=== PATIENT | male | born 1975 | race Two or more races ===

== ENCOUNTER 2017-01-17 05:51 | Emergency (ER) | payer MEDICARE, MEDICAID ==
[~2017-01-17] VITALS: Ht 170.2 cm; Wt 68.0 kg
[~2017-01-17 05:51] MED LIST: ADAL40KI SQ; MESA1.2T PO; OMEP20TA20 PO; PRED20TA PO
[2017-01-17] MEDS ORDERED: HYDROMORPHONE 1 MG/1 ML DISP.SYRIN IM ONE (06:15)
[2017-01-17] MEDS ORDERED: HYDROMORPHONE 1 MG/1 ML DISP.SYRIN ONE (06:26)
--- NOTE | 2017-01-17 06:37 | NUR ---
Patient discharged to home in stable conditon. Written and verbal after care instructions given. Patient verbalizes understanding of instructions.
== END 2017-01-17 06:38 | disposition home or self-care (01) ==
LOC: ER 05:53
DX: M54.5 Low back pain (principal); F17.200 Nicotine dependence, unspecified, uncomplicated; Z88.6 Allergy status to analgesic agent
CPT/HCPCS: A4663; J1170

== ENCOUNTER 2017-07-18 17:35 | Emergency (ER) | payer MEDICARE, OTHER ==
[~2017-07-18] VITALS: Ht 172.7 cm; Wt 59.0 kg
[2017-07-18] MEDS ORDERED: TERI2.4P SQ (17:43)
[2017-07-18] MEDS ORDERED: ONDANSETRON 4 MG/2 ML VIAL IV ONE (18:15)
[2017-07-18] MEDS ORDERED: IV NORMAL SALINE 1000 ML BAG IV ONE (18:15)
[2017-07-18] MEDS ORDERED: HYDROMORPHONE 1 MG/1 ML DISP.SYRIN IV ONE (18:15)
[2017-07-18 18:34] LABS: BASOPHILS % (AUTO) 0.2 % (0.0-2.0); EOSINOPHILS % (AUTO) 0.2 % (0.0-7.0); HEMATOCRIT 38.2 % (40-50); HEMOGLOBIN 12.5 G/DL (14.0-18.0); LYMPHOCYTES % (AUTO) 17.4 % (20.5-51.5); MEAN CORPUSCULAR HEMOGLOBIN 26.4 UUG (27.0-31.0); MEAN CORPUSCULAR HGB CONC 33 g/dL (32.0-37.0); MEAN CORPUSCULAR VOLUME 80.6 FL (82.0-92.0); MONOCYTES # (AUTO) 0.7 K/UL (0.1-1.30); MONOCYTES % (AUTO) 3.9 % (0.0-11.0); NEUTROPHILS # (AUTO) 13.6 K/UL (1.8-8.9); NEUTROPHILS % (AUTO) 78.3 % (38.5-71.5); PLATELET COUNT (AUTO) 378 K/UL (150-450); RED BLOOD CELL COUNT(AUTO) 4.74 MIL/UL (4.7-6.1); WHITE BLOOD COUNT (AUTO) 17.3 K/UL (4.0-11.2)
[2017-07-18 18:40] LABS: CREATININE 0.8 mg/dL (0.6-1.3); POTASSIUM 3.2 mmol/L (3.5-5.1)
[2017-07-18 18:46] LABS: BAND % (MANUAL) 2 % (0-10); BILIRUBIN,DIRECT 0.1 mg/dL (0.0-0.2); BILIRUBIN,TOTAL 0.4 mg/dL (0.2-1.0); LYMPHOCYTES % (MANUAL) 15 % (20-40); MONOCYTES % (MANUAL) 5 % (2-10); NEUTROPHILS % (MANUAL) 78 % (42-75); TOTAL PROTEIN, SERUM 6.9 g/dL (6.4-8.2)
[2017-07-18] MEDS ORDERED: HYDROMORPHONE 2 MG/1 ML DISP.SYRIN ONE (18:52)
[2017-07-18] MEDS ORDERED: ONDANSETRON 4 MG/2 ML VIAL ONE (18:52)
--- NOTE | 2017-07-18 20:09 | NUR ---
Peripheral IV access removed prior per ER MD instruction.
[2017-07-18] MEDS ORDERED: diphenhydrAMINE 50 MG CAPSULE PO ONE (20:30)
[2017-07-18] MEDS ORDERED: diphenhydrAMINE 50 MG CAPSULE ONE (20:39)
--- NOTE | 2017-07-18 20:52 | NUR ---
Patient discharged to home in stable conditon. Written and verbal after care instructions given. Patient verbalizes understanding of instructions.
== END 2017-07-18 20:53 | disposition home or self-care (01) ==
LOC: ER 17:37
DX: K50.90 Crohn's disease, unspecified, without complications (principal); F17.200 Nicotine dependence, unspecified, uncomplicated; Z88.5 Allergy status to narcotic agent
CPT/HCPCS: 83690; 85025; A4663; J1170; J2405; J7030; Q0163

== ENCOUNTER 2022-09-23 12:27 | Emergency (ER) | payer MEDICARE, OTHER ==
[~2022-09-23] VITALS: Ht 172.7 cm; Wt 59.0 kg
[~2022-09-23 12:27] MED LIST changes: +TERI2.4P SQ
[2022-09-23] MEDS ORDERED: CEPH500T PO (12:50)
--- NOTE | 2022-09-23 12:55 | NUR ---
Patient discharged to home in stable condition. Written and verbal after care instructions given. Patient verbalizes understanding of instructions. Stressed follow up or return to ER for worsening s/s.
== END 2022-09-23 12:56 | disposition home or self-care (01) ==
LOC: ER 12:27
DX: H00.014 Hordeolum externum left upper eyelid (principal); K50.90 Crohn's disease, unspecified, without complications; Z96.653 Presence of artificial knee joint, bilateral; Z96.643 Presence of artificial hip joint, bilateral; Z79.52 Long term (current) use of systemic steroids; Z79.899 Other long term (current) drug therapy
CPT/HCPCS: A4663

== ENCOUNTER 2022-09-25 19:38 | Emergency (ER) | payer MEDICARE, OTHER ==
[~2022-09-25] VITALS: Ht 170.2 cm; Wt 68.0 kg
[~2022-09-25 19:38] MED LIST changes: +CEPH500T PO
[2022-09-25] MEDS ORDERED: CYANOCOBALAMIN 1000 MCG/ML VIAL IM ONE (20:15)
[2022-09-25] MEDS ORDERED: SULF1TAB48 PO (20:21)
[2022-09-25] MEDS ORDERED: CYANOCOBALAMIN 1000 MCG/ML VIAL ONE (20:48)
--- NOTE | 2022-09-25 20:59 | NUR ---
Patient discharged to home in stable condition. Written and verbal after care instructions given. Patient verbalizes understanding of instructions. Stressed follow up or return to ER for worsening s/s. Patient walked out with steady gait.
[2022-09-25 21:28] VITALS: BP 132/95
== END 2022-09-25 20:59 | disposition home or self-care (01) ==
LOC: ER 19:38
DX: H00.014 Hordeolum externum left upper eyelid (principal); K50.90 Crohn's disease, unspecified, without complications; K21.9 Gastro-esophageal reflux disease without esophagitis; I10 Essential (primary) hypertension; Z88.6 Allergy status to analgesic agent; Z79.899 Other long term (current) drug therapy; Z79.52 Long term (current) use of systemic steroids
CPT/HCPCS: 99283; 96372; J3420; A4663